=== PATIENT | male | born 1955 | race Caucasian/White ===

== ENCOUNTER 2017-11-26 19:49 | Emergency (ER) | END 2017-11-27 03:50 | disposition home or self-care (01) ==

== ENCOUNTER 2017-11-28 21:19 | Emergency (ER) | END 2017-11-28 22:00 | disposition home or self-care (01) ==

== ENCOUNTER 2018-11-16 08:06 | Day surgery (SDC) | payer OTHER ==
[2018-11-15 10:45] VITALS: BMI 28.2
[~2018-11-16] VITALS: Ht 175.3 cm; Wt 89.9 kg
[2018-11-16] VITALS (8 sets, daily range): BP systolic 113–135; BP diastolic 69–75; PULSE 64–75; RESP 16–18; Ht 175.3 cm; Wt 89.9 kg
[~2018-11-16 08:06] MED LIST: ACETAZOLAMIDE 250 MG TAB PO ONE; CARBACHOL 0.01% 1.5 ML OPH INJ ONE; CEPH-443 PO; DICLOFENAC 0.1% 2.5 ML OPH OPER SCH; EPINEPHrine 1 MG INJ ONE; ERYTHROMYCIN 1 GM OPH OINT ZFS ONE; IBUP-1542 PO; LIDOCAINE 1%/EPI (1:100,000) (MDV) 20 ML ONE; LIDOCAINE 4% (MPF) 5 ML INJ OPER ONE; MOXIFLOXACIN 0.5% 3 ML OPH OPER SCH; NA HYALURONATE/CHONDROITIN 0.5 ML SYG ONE; PHENYLephrine 10% 5 ML OPH OPER SCH; TETRACAINE 0.5% 4 ML OPH ONE; TOBRAMYCIN 0.3% 3.5 GM OPH OINT ONE; TROPICAMIDE 1% 15 ML OPH OPER SCH
[2018-11-16] MEDS ORDERED: TOBRAMYCIN/DEXAMETH 3.5 GM OPH OINT ONE (08:26)
[2018-11-16] MEDS ORDERED: LIDOCAINE 1%/EPI (1:100,000) (MDV) 20 ML INJ ONE (08:35)
[2018-11-16] MEDS ORDERED: TETRACAINE 0.5% 4 ML OPH RIGHT EYE ONE ×2 (08:35→09:00)
--- NOTE | 2018-11-16 08:39 | HPN ---
Date/Time of Note Date/Time of Note DATE: 11/16/18 TIME: 08:39 Interval H&P Admission Note Pt. seen H&P reviewed: No system changes PAT LOPEZ Nov 16, 2018 08:39
[2018-11-16] MEDS ORDERED: SODIUM HYALURONATE 14 MG/ML SYG IO ONE (08:49)
[2018-11-16] MEDS ORDERED: TETRACAINE 0.5% 4 ML OPH ONE (08:55)
[2018-11-16] MEDS ORDERED: LACTATED RINGER'S 1,000 ML IV SCH (09:30)
--- NOTE | 2018-11-16 09:40 | PREAC ---
Date/Time of Note Date/Time of Note DATE: 11/16/18 TIME: 09:38 Anesthesia Eval and Record Evaluation Time Pre-Procedure Interview DATE: 11/16/18 TIME: 09:38 Age 63 Sex male NPO: 8 hrs Preoperative diagnosis R eye cataract Planned procedure R eye cataract extr w/ IOL Past Medical History Past Medical History: Includes (poss copd, back pain chronic) Surgery & Anesthesia Issues No known issue Meds Anticoagulation: No Beta Shahrzad within 24 hr: No Reason Beta Shahrzad not given: Pt. not on B-Shahrzad Discontinued Scripts Ibuprofen* (Motrin*) 600 Mg Tab, 600 MG PO Q6, #30 TAB Prov:EVARISTO,PAYAL 11/27/17 Cephalexin* (Keflex*) 500 Mg Capsule, 500 MG PO QID for 10 Days, #40 CAP Prov:EVARISTO,PAYAL 11/27/17 Current Medications Moxifloxacin HCl (Vigamox) 1 drop Q5 MIN X 3 OPER Last administered on 11/16/18at 08:27; Admin Dose 1 DROP; Start 11/16/18 at 07:00 Phenylephrine HCl (Ak-Dilate 10%) 1 drop Q5 MIN X 3 OPER Last administered on 11/16/18at 08:27; Admin Dose 1 DROP; Start 11/16/18 at 07:00 Tropicamide (Mydriacyl 1%) 1 drop Q5 MIN X3 OPER Last administered on 11/16/18at 08:28; Admin Dose 1 DROP; Start 11/16/18 at 07:00 Diclofenac Sodium (Voltaren 0.1%) 1 drop Q5 MIN X3 OPER Last administered on 11/16/18at 08:26; Admin Dose 1 DROP; Start 11/16/18 at 07:00 Lactated Ringer's 1,000 ml @ 30 mls/hr Q24H IV ; Start 11/16/18 at 09:30 Meds reviewed: Yes Allergies Coded Allergies: No Known Allergy (Unverified , 11/16/18) Allergies Reviewed: Yes Labs/Studies Labs Reviewed: Reviewed by anesthesiologist test: N/A Studies: ECG (SR w/ frequent PVC, R atrial enlargement, borderline EcG), CXR (mild hyperinflation w/ changes possible COPD) Pre-procedure Exam Last vitals Vital Signs Date Temp Pulse Resp B/P (MAP) Pulse Ox O2 O2 Flow FiO2 Time Delivery Rate 2/28/19 98.4 75 18 113/75 97 Room Air 08:46 (88) Airway: Adequate mouth opening, Adequate thyromental dist Mallampati: Mallampati II Teeth: Normal Lung: Normal Heart: Normal ASA Physical Status ASA physical status: 2 Emergency: None Planned Anesthetic General/MAC: MAC Planned Pain Management Local by surgeon Pre-operative Attestations Prior to commencing anesthesia and surgery, the patient was re-evaluated, there was verification of: *The patient's identity *The results of appropriate recent lab work and preoperative vital signs *The above evaluation not changing prior to induction *Anesthetic plan, risk benefits, alternative and complications discussed with patient/family; questions answered; patient/family understands, accepts and wishes to proceed. SONG MCBRIDE Nov 16, 2018 09:40
[2018-11-16] MEDS ORDERED: FENTAnyl 50 MCG/ML VIAL ONE (09:55)
[2018-11-16] MEDS ORDERED: ALBUTEROL 0.083% (NEB) 2.5 MG/3 ML AMP HHN PRN (10:00)
[2018-11-16] MEDS ORDERED: DIPHENHYDRAMINE 50 MG INJ IV PRN (10:00)
[2018-11-16] MEDS ORDERED: FENTAnyl 50 MCG/ML VIAL IV PRN (10:00)
[2018-11-16] MEDS ORDERED: ACETAMINOPHEN 500 MG TAB PO PRN (10:00)
[2018-11-16] MEDS ORDERED: LABETALOL HCL 20MG INJ IV PRN (10:00)
[2018-11-16] MEDS ORDERED: ONDANSETRON 4 MG INJ IV PRN (10:00)
[2018-11-16] MEDS ORDERED: OXYCODONE/ACETAMINOPHEN (5/325) TAB PO PRN (10:00)
[2018-11-16] MEDS ORDERED: ACETAMINOPHEN 325 MG TAB PO PRN (10:00)
[2018-11-16] MEDS ORDERED: hydrALAzine 20 MG INJ IV PRN (10:00)
--- NOTE | 2018-11-16 10:16 | PAC ---
Date/Time of Note Date/Time of Note DATE: 11/16/18 TIME: 10:15 Post-Anesthesia Notes Post-Anesthesia Note Last documented vital signs Vital Signs Date Temp Pulse Resp B/P Pulse Ox O2 O2 Flow FiO2 Time (MAP) Delivery Rate 11/16/18 98.4 98.4 75 68 18 16 113/75 97 98 Room 08:46 101 (88) 135 Air RA Activity: WNL Respiratory function: WNL Cardiovascular function: WNL Mental status: Baseline Pain reasonably controlled: Yes Hydration appropriate: Yes Nausea/Vomiting absent: Yes SONG MCBRIDE Nov 16, 2018 10:16
--- NOTE | 2018-11-16 10:17 | OPR ---
Date/Time of Note Date/Time of Note DATE: 11/16/18 TIME: 10:12 Operative Report Free Text/Dictation Procedure Date: 11/16/2018 Pre-operative diagnosis: Visually significant cataract, RIGHT eye Postoperative diagnosis: Visually significant cataract, right eye Procedure: Phacoemulsification with Intra-ocular lens placement, right eye Surgeon: Pat Lopez MD Heating Unit Mechanic: none Anesthesia Type: MAC, local anesthesia Anesthesiologist: DIAZ Tourniquet Time: NA Estimated blood loss: None Transfusions: none Specimen: None Grafts/Implants: IOL: [id number], power +21.00, serial [id number] Tubes/Drains: None Complications: None Pt Condition Post Procedure: stable Disposition: home Findings: opacified lens Indications for procedure: The patient is 63 year-old male with Visually significant cataract, who prese nted with blurred vision and difficulty reading and driving. Past medical history is significant for arteritis ans spinal stenosis. Past surgical history is significant for cataract surgery left eye. The patient is on no medication. The is no known allergy. There is no history of glaucoma or any other hereditary ophthalmic disease in the family. Review of system is negative except for the blurred vision in the affected eye. VA in the operated eye 20/70, IOP16 mmHg. Pupils are reactive with no RAPD. Slit lamp exam: cornea is clear, deep anterior chamber, 2+ cortical cataract, 3+ nuclear sclerosis cataract, there is no psudoexfoliation present at the pupillary margin or anterior lens capsule. On funds exam cup/disc ratio is 0.2, macula shows normal foveal reflex, retina is attached. Risk, benefit and alternative to cataract surgery was explained to the patient, who agreed to proceed with the procedure. The informed consent was signed by the patient. Description of procedure: The patient was seen by me along with anesthesia team in the pre op area and the surgical site was marked and confirmed. Anesthetic drops along with dilating drops was instilled in surgical eye in the pre op. The patient was then brought back to the operating room placed in supine position. The eye was prepped with Betadine 5% and draped in sterile manner for the ophthalmic surgery. An eyelid speculum was was placed to keep the eyelid open. Paracentesis wound was made superiorly and inferiorly though clear cornea near the limbus using 1. 2mm side-port blade. Preservative free Lidocaine 1% was injected into the anterior chamber through the paracentesis wound. The anterior chamber was inflated with viscoelastic (viscoat). A keratom blade was used to make a bi- planar, shelved, clear corneal incision, starting at temporal limbus and then tunnel-ing through clear cornea to enter the anterior chamber. A circular curvilinear continue capsulorrhexis was initiated by cystotom and continued with utrata forceps. The capsular flap then was removed. Hy drodissection and hydrodelineation was per-formed using BSS until the lens was freely rotatable. The lens nucleus was then removed using the phacoemulsification handpiece. The residual cortex was removed with the bimanual irrigation/aspiration handpieces. The capsular bag and anterior chamber were inflated with viscoelastic, and the IOL was inserted into the capsular bag. Using irrigation/Aspiration handpiece on the aspiration mode, Healon was removed from the anterior and posterior chamber. Main wound and paracentesis wound was hydrated by BSS. The speculum was removed. Vigamox drops and Sterile antibiotic/steroid ointment was applied to the eye. A cotton patch and clear shield were placed over the operative eye. The patient was transferred to the recovery room in stable condition. Pat Lopez MD [id number] PAT LOPEZ Nov 16, 2018 10:17
== END 2018-11-16 11:41 | disposition home or self-care (01) ==
LOC: SDS 08:06
PROVIDERS: ATTEND Ophthalmology
DX: H26.8 Other specified cataract (principal)
CPT/HCPCS: 66984; J0171; J3010; Z7610; V2632